=== PATIENT | female | born 1990 | race Caucasian/White ===

== ENCOUNTER 2018-08-01 13:49 | Inpatient (IN) | payer OTHER ==
[~2018-08-01] VITALS: Ht 162.6 cm; Wt 73.9 kg
[2018-08-04] MEDS ORDERED: INTEGRA F CAPS1 EACH PO (08:35)
== END 2018-08-06 11:36 | DRG 768 ==
LOC: OB/GYN 13:49 → LDR 08-03 15:51 → OB/GYN 08-04 16:32
PROVIDERS: ADMIT Obstetrics & Gynecology
PROC: 4A1HXCZ Monitoring of Products of Conception, Cardiac Rate, External Approach (ICD-10-PCS; 2018-08-03)
PROC: 10E0XZZ Delivery of Products of Conception, External Approach (ICD-10-PCS; principal; 2018-08-04)
PROC: 0DQP0ZZ Repair Rectum, Open Approach (ICD-10-PCS; 2018-08-04)
PROC: 0W8NXZZ Division of Female Perineum, External Approach (ICD-10-PCS; 2018-08-04)
DX: O70.3 Fourth degree perineal laceration during delivery (principal); Z37.0 Single live birth; Z3A.40 40 weeks gestation of pregnancy

== ENCOUNTER → 2018-08-01 | Outpatient (CLI) | payer OTHER | END | disposition home or self-care (01) | LOC: NST 11:14 | DX: Z34.83 Encounter for supervision of other normal pregnancy, third trimester (principal) ==